=== PATIENT | female | born 1960 | race Caucasian/White ===

== ENCOUNTER 2024-08-14 13:53 | Observation (INO) | payer MEDICARE ==
[2024-08-14 14:36] LABS: #Basophils 0.03 10x3/uL (0.0-0.2); %Basophils 0.5 % (0.0-1.0); %Monocytes 9.9 % (0.0-10.0); %Neutrophils 64.4 % (42.0-75.0); Hematocrit 46.6 % (36.0-47.0); Hemoglobin 15.9 g/dL (12.0-16.0); Mean Corpuscular HGB CONC 34.1 g/dL (32.0-36.0); Mean Corpuscular Hemoglobin 32.2 pg (27.0-31.0); Mean Corpuscular Volume 94.3 fL (78.0-98.0); Mean Platelet Volume 9.3 fL (7.4-10.4); Platelet Count 218 10x3/uL (130-400); RBC Distribution Width 12.6 % (11.5-14.5); Red Blood Cell (RBC) Count 4.94 mill/uL (4.20-5.40)
[2024-08-14 14:50] LABS: Prothrombin Time 12.9 sec (12.0-14.7)
[2024-08-14 14:51] LABS: PTT 30.6 sec (22.9-36.1)
[2024-08-14 14:54] LABS: Acetaminophen Less than 10 mcg/mL (Less than 10); Alcohol Less than 10.0 mg/dL (Less than 10); Salicylate Less than 8.0 mg/dL (Less than 8.0)
[2024-08-14 14:55] LABS: ALT (SGPT) 16 U/L (8-55); AST (SGOT) 19 U/L (5-34); Albumin 3.5 g/dL (3.4-4.8); Alkaline Phosphatase 112 U/L (40-110); Anion Gap 13 mmol/L (10-20); BUN (Urea Nitrogen) 9 mg/dL (9.8-20.1); Bilirubin, Total 0.9 mg/dL (0.2-1.2); Calc. Creatinine Clearance 0 mL/min (70-130); Calcium 8.8 mg/dL (7.8-10.44); Carbon Dioxide 25 mmol/L (23-31); Chloride 105 mmol/L (98-107); Estimated GFR 96; Globulin 3.6 g/dL (2.4-3.5); Glucose 106 mg/dL (80-115); Potassium 3.4 mmol/L (3.5-5.1); Protein, Total 7.1 g/dL (5.8-8.1); Sodium 140 mmol/L (136-145); Troponin I Less than 0.010 ng/mL (< 0.028)
[2024-08-14 15:55] LABS: Bilirubin Negative (Negative); Blood, Urine Trace (Negative); CAUTI Indications for Culture < 2yrs of age; Clarity Clear (Clear); Glucose, Urine (Dipstick) Normal (Negative); Ketone, Urine Negative (Negative); Leukocyte Negative Leu/uL (Negative); Nitrite Negative (Negative); Protein, Urine (Dipstick) Negative (Neg-Trace); Specific Gravity, Urine 1.002 (1.002-1.036); Squamous Epithelial 0-3 HPF (0-3); Urobilinogen Normal mg/dL (Less than 2); WBC/HPF 0-3 HPF (0-3); pH, Urine 5.5 (5.0-9.0)
[2024-08-14 15:58] LABS: Amphetamine Not Detected (NotDetected); Barbiturates Screen Not Detected (NotDetected); Benzodiazepine Screen Not Detected (NotDetected); Cocaine Metabolite Screen Not Detected (NotDetected); Methadone Not Detected (NotDetected); Methamphetamine Not Detected (NotDetected); Opiate Screen Not Detected (NotDetected); Oxycodone Screen Not Detected (NotDetected); Phencyclidine (PCP) Not Detected (NotDetected); THC/Cannabinoid Screen Not Detected (NotDetected); Tricyclic Screen Not Detected (NotDetected)
[2024-08-14 16:02] LABS: Bacteria/HPF 1+ HPF (None Seen)
[2024-08-14 16:03] LABS: Urine Culture Reflex No No; Urine Culture Reflex Yes Yes
[2024-08-14] MEDS ORDERED: Aspirin Chewable 81 MG TAB ONE ×2 (16:04→16:09)
[2024-08-14 16:47] VITALS: BMI 25.0
[2024-08-14] MEDS ORDERED: Acetaminophen 325 MG TAB PO PRN (17:43)
[2024-08-14] MEDS ORDERED: Lorazepam 1 MG TAB PO PRN (17:47)
[2024-08-14] MEDS ORDERED: Nicotine 21 MG PATCH TD PRN (17:47)
[2024-08-14] MEDS ORDERED: Ondansetron ODT 4 MG TAB PO PRN (17:47)
[2024-08-14] MEDS ORDERED: Lorazepam 2 MG/ML VIAL IM PRN (17:47)
[2024-08-14] MEDS ORDERED: Metoclopramide HCl 10 MG (2 mL) VIAL IVP PRN (17:57)
[2024-08-14] MEDS ORDERED: Electrolyte Replacement Protocol 1 EACH FS SCH (18:00)
[2024-08-14] MEDS: Potassium Chloride 20 MEQ TAB PO SCH (20:39)
[2024-08-14] MEDS: Lisinopril 10 MG TAB PO SCH (20:39)
[2024-08-14] MEDS: Multivit, Therapeutic 1 TAB PO SCH (20:40)
[2024-08-14] MEDS: Atorvastatin Calcium 40 MG TAB PO SCH (20:40)
[2024-08-14] MEDS: Folic Acid 1 MG TAB PO SCH (20:42)
[2024-08-15 03:32] VITALS: TEMP 98.2
[2024-08-15] MEDS: hydrALAZINE 20 MG/ML VIAL SLOW IVP PRN (03:42)
[2024-08-15 05:18] LABS: Anion Gap 12 mmol/L (10-20); BUN (Urea Nitrogen) 9 mg/dL (9.8-20.1); Calc. Creatinine Clearance 95 mL/min (70-130); Calcium 8.8 mg/dL (7.8-10.44); Carbon Dioxide 22 mmol/L (23-31); Cardiac Risk 4.3 (Less than 4.5); Chloride 107 mmol/L (98-107); Cholesterol 187 mg/dl (< 200 Desired); Estimated GFR 96; Glucose 96 mg/dL (80-115); HDL Cholesterol 43 mg/dL (>60 Neg Risk); LDL Cholesterol, Calculated 126 mg/dL; Magnesium 1.9 mg/dL (1.6-2.6); Potassium 3.6 mmol/L (3.5-5.1); Sodium 137 mmol/L (136-145); Triglycerides 88 mg/dL (Less than 150)
[2024-08-15 05:37] LABS: Hemoglobin A1c 5.5 % (4.0-6.0)
[2024-08-15] MEDS: Magnesium 2 GM/50 ML(in water) 2 GM in Premix 1 BAG IVPB SCH (08:59)
[2024-08-15] MEDS: Folic Acid 1 MG TAB PO SCH (09:00)
[2024-08-15] MEDS: Aspirin 81 mg Enteric Coated Tablet PO SCH (09:00)
[2024-08-15] MEDS: Enoxaparin 40 MG (0.4 mL) SYRINGE SC SCH (09:00)
[2024-08-15] MEDS: Multivit, Therapeutic 1 TAB PO SCH (09:01)
[2024-08-15 10:41] VITALS: BP 140/87
[2024-08-15] MEDS ORDERED: Lorazepam 1 MG TAB PO PRN (17:47)
[2024-08-16] MEDS ORDERED: Clopidogrel Bisulfate 75 MG TAB PO SCH (09:00)
[2024-08-16] MEDS ORDERED: Lorazepam 1 MG TAB PO PRN (17:47)
[2024-08-17] MEDS ORDERED: Lorazepam 0.5 MG TAB PO PRN (17:47)
== END 2024-08-15 18:30 | disposition home or self-care (01) ==
LOC: ERS 13:53 → 2SE 16:38
PROVIDERS: ADMIT Family Medicine; ATTEND Internal Medicine
PROC: B246YZZ Ultrasonography of Right and Left Heart using Other Contrast (ICD-10-PCS; principal; 2024-08-14)
DX: I63.512 Cerebral infarction due to unspecified occlusion or stenosis of left middle cerebral artery (principal); I10 Essential (primary) hypertension; E87.6 Hypokalemia; R94.31 Abnormal electrocardiogram [ECG] [EKG]; I16.1 Hypertensive emergency; F10.10 Alcohol abuse, uncomplicated; E78.5 Hyperlipidemia, unspecified; F17.210 Nicotine dependence, cigarettes, uncomplicated; I36.1 Nonrheumatic tricuspid (valve) insufficiency; Z79.02 Long term (current) use of antithrombotics/antiplatelets; Z79.82 Long term (current) use of aspirin; Z79.899 Other long term (current) drug therapy; Z88.0 Allergy status to penicillin
CPT/HCPCS: 70450; 70551; 71045; 80048; 80053; 80061; 80306; 80307; 81001; 82140; 83036; 83605; 83735; 83880; 84443; 84484; 85025; 85610; 85730; 87040; 87086; 93306; 93880; 96372; 96374; 96375; 99285; G0378 ×3; J0360; J1650; J3475; 36415; 93005